=== PATIENT | male | born 2000 | race American Indian/Alaskan Native ===

== ENCOUNTER 2019-07-13 03:06 | Emergency (ER) | payer MEDICAID, OTHER ==
[2019-07-13] MEDS ORDERED: Haloperidol Lactate 5 MG/ML SDV IM ONE ×3 (03:19→03:54)
[2019-07-13] MEDS ORDERED: Sodium Chloride 0.9% 10 ML Syringe FLUSH PRN (04:24)
--- NOTE | 2019-07-13 04:24 | EDM.PDOC ---
ED HPI GENERAL MEDICAL PROBLEM - General Chief Complaint: Drug or Alcohol Abuse Stated Complaint: intoxicated Time Seen by Provider: 07/13/19 03:13 Source of Information: Reports: EMS, EMS Notes Reviewed, Police History Limitations: Reports: Intoxication - History of Present Illness INITIAL COMMENTS - FREE TEXT/NARRATIVE: Nahid arrives by EMS with LE following arrest for destruction of private property, and appearance of BRB on the hands and feet from this activity. Nahid appeared intoxicated, Breathylizer 0.17 and was uncooperative with LE necessitating transfer in 4-pt restraints. Upon arrival at [facility] ED, Nahid was uncooperative with staff necessitating chemical restraint with Haldol 10 mg IM, followed by Haldol 5 mg IM at 15 min, followed by Haldol 5 mg IM at 20 min with cooperation achieved. Cleansing revealed a 1 cm laceration of the hypothenar aspect of R hand, and this was closed with Dermabond uneventfully. Inspection did not reveal any other bleeding sites, or other injuries. ED ROS GENERAL - Review of Systems Review Of Systems: Unable To Obtain Reason Not Obtained: intoxication ED EXAM, GENERAL - Physical Exam Exam: See Below Exam Limited By: Intoxication General Appearance: No Apparent Distress, Other (dried blood on hands and feet, small amounts on face and clothing) Eye Exam: Bilateral Eye: EOMI, Normal Inspection, PERRL Ears: Normal External Exam Nose: Normal Inspection Throat/Mouth: Normal Inspection Head: Normocephalic Neck: Normal Inspection, Supple, Full Range of Motion Respiratory/Chest: Lungs Clear Cardiovascular: Regular Rate, Rhythm, No Murmur GI/Abdominal: Normal Bowel Sounds, Soft, Non-Tender, No Organomegaly, No Distention, No Mass, Other (surgical scar LLQ) (Male) Exam: No Hernia, Normal Inspection, Circumcised Rectal (Males) Exam: Deferred Back Exam: Normal Inspection Extremities: Other (1 cm laceration to hypothenar eminence R hand) Neurological: CN II-XII Intact, Inattentive Psychiatric: Flat Affect Skin Exam: Warm, Dry, Normal Color, No Rash, Wound/Incision (1 cm laceration ) Lymphatic: No Adenopathy ED GENERAL MEDICAL PROCEDURES - Laceration/Wound Repair Right Hand Lac/wound length in cm: 1.0 Appearance: Linear, Mildly Contaminated Distal NVT: Neuro & Vascular Intact, No Tendon Injury Skin Prep: Isopropyl Alcohol (Alcohol) Exploration/Debridement/Repair: Wound Explored, In a Bloodless Field, No Foreign Material Found Closed with: Dermabond Drain Placement: No Sterile Dressing Applied: None Tetanus Status Addressed: Yes Complications: No Course - Vital Signs Text/Narrative:: Following assessment, subsequent BA 0.20 was confirmed, Drug Screen positive for cannabis. IV D5LR 2L administered over the next 2 hrs, followed by D5LR maintenance fluids while asleep. VS remained stable during detoxification while observed in the ED. Screening metabolic studies were baseline. He was clinically stable at time of discharge, and left with mother. Last Recorded V/S: Last Vital Signs Temp Pulse 75 07/13/19 08:11 Resp 19 07/13/19 08:11 BP 99/48 L 07/13/19 08:11 Pulse Ox 100 07/13/19 08:11 - Orders/Labs/Meds Orders: Active Orders 24 hr Category Date Time Status Initiate/Renew Violent-Self Destructive Restraints >/= Care 07/13/19 03:06 Ordered 16yo Q4H Dextrose 5%-Lactated Ringers 1,000 ml Med 07/13/19 07:30 Active IV ASDIRECTED Dextrose 5%-Lactated Ringers 2,000 ml Med 07/13/19 04:30 Active IV ASDIRECTED Sodium Chloride 0.9% [Saline Flush] Med 07/13/19 04:24 Active 10 ml FLUSH ASDIRECTED PRN Peripheral IV Insertion Adult [OM.PC] Routine Oth 07/13/19 04:24 Ordered Medication Orders Dextrose/Lactated Ringer's (Dextrose 5%-Lactated Ringers) 2,000 mls @ 999 mls/ hr IV ASDIRECTED [facility] Last Admin: 07/13/19 06:06 Dose: 999 mls/hr Infusion: 07/13/19 06:06 Dose: 999 mls/hr Admin: 07/13/19 04:38 Dose: 999 mls/hr Dextrose/Lactated Ringer's (Dextrose 5%-Lactated Ringers) 1,000 mls @ 125 mls/ hr IV ASDIRECTED KALANI Last Admin: 07/13/19 07:21 Dose: 125 mls/hr Sodium Chloride (Saline Flush) 10 ml FLUSH ASDIRECTED PRN PRN Reason: Keep Vein Open Labs: Laboratory Tests 07/13/19 07/13/19 07/13/19 Range/Units 04:18 06:11 11:50 WBC 5.7 (4.5-12.0) X10-3/uL RBC 4.52 (4.30-5.75) x10(6)uL Hgb 13.2 L (13.5-17.8) g/dL Hct 40.5 (30.0-51.3) % MCV 89.6 (80-96) fL MCH 29.3 (27.7-33.6) pg MCHC 32.7 (32.2-35.4) g/dL RDW 12.7 (11.5-15.5) % Plt Count 235 (125-369) X10(3)uL MPV 8.6 (7.4-10.4) fL Neut % (Auto) 58.5 (46-82) % Lymph % (Auto) 29.4 (13-37) % [facility] % (Auto) 9.0 (4-12) % Eos % (Auto) 2 (1.0-5.0) % Baso % (Auto) 1 (0-2) % Neut # (Auto) 3.3 (1.6-8.3) # Lymph # (Auto) 1.7 (0.6-5.0) # [facility] # (Auto) 0.5 (0.0-1.3) # Eos # (Auto) 0.1 (0.0-0.8) # Baso # (Auto) 0.1 (0.0-0.2) # Sodium (135-145) mmol/L Potassium (3.5-5.3) mmol/L Chloride (100-110) mmol/L Carbon Dioxide (21-32) mmol/L BUN (7-18) mg/dL Creatinine (0.70-1.30) mg/dL Est Cr Clr Drug Dosing Estimated GFR (MDRD) (>60) BUN/Creatinine Ratio (9-20) Glucose (80-116) mg/dL Calcium (8.6-10.2) mg/dL Urine Opiates Screen Negative (NEGATIVE) Ur Oxycodone Screen Negative (NEGATIVE) Ur Propoxyphene Screen Negative (NEGATIVE) Ur Barbituates Screen Negative (NEGATIVE) Ur Tricyclics Screen Negative (NEGATIVE) Ur Phencyclidine Scrn Negative (NEGATIVE) Ur Amphetamine Screen Negative (NEGATIVE) Urine MDMA Screen Negative (NEGATIVE) U Benzodiazepines Scrn Negative (NEGATIVE) U Cocaine Metab Screen Negative (NEGATIVE) U Marijuana (THC) Screen Positive H (NEGATIVE) Ethyl Alcohol 0.20 H* (<0.03) % 07/13/19 07/13/19 Range/Units 11:50 11:50 WBC (4.5-12.0) X10-3/uL RBC (4.30-5.75) x10(6)uL Hgb (13.5-17.8) g/dL Hct (30.0-51.3) % MCV (80-96) fL MCH (27.7-33.6) pg MCHC (32.2-35.4) g/dL RDW (11.5-15.5) % Plt Count (125-369) X10(3)uL MPV (7.4-10.4) fL Neut % (Auto) (46-82) % Lymph % (Auto) (13-37) % [facility] % (Auto) (4-12) % Eos % (Auto) (1.0-5.0) % Baso % (Auto) (0-2) % Neut # (Auto) (1.6-8.3) # Lymph # (Auto) (0.6-5.0) # [facility] # (Auto) (0.0-1.3) # Eos # (Auto) (0.0-0.8) # Baso # (Auto) (0.0-0.2) # Sodium 145 (135-145) mmol/L Potassium 4.1 (3.5-5.3) mmol/L Chloride 112 H (100-110) mmol/L Carbon Dioxide 25 (21-32) mmol/L BUN 9 (7-18) mg/dL Creatinine 0.7 (0.70-1.30) mg/dL Est Cr Clr Drug Dosing TNP Estimated GFR (MDRD) > 60 (>60) BUN/Creatinine Ratio 12.9 (9-20) Glucose 85 (80-116) mg/dL Calcium 8.3 L (8.6-10.2) mg/dL Urine Opiates Screen (NEGATIVE) Ur Oxycodone Screen (NEGATIVE) Ur Propoxyphene Screen (NEGATIVE) Ur Barbituates Screen (NEGATIVE) Ur Tricyclics Screen (NEGATIVE) Ur Phencyclidine Scrn (NEGATIVE) Ur Amphetamine Screen (NEGATIVE) Urine MDMA Screen (NEGATIVE) U Benzodiazepines Scrn (NEGATIVE) U Cocaine Metab Screen (NEGATIVE) U Marijuana (THC) Screen (NEGATIVE) Ethyl Alcohol 0.08 H (<0.03) % Meds: Medications Generic Name Dose Route Start Last Admin Trade Name Freq PRN Reason Stop Dose Admin Dextrose/Lactated Ringer's 2,000 mls @ 999 mls/hr 07/13/19 04:30 07/13/19 06: 06 Dextrose 5%-Lactated Ringers IV 999 mls/hr ASDIRECTED KALANI Administration Dextrose/Lactated Ringer's 1,000 mls @ 125 mls/hr 07/13/19 07:30 07/13/19 07: 21 Dextrose 5%-Lactated Ringers IV 125 mls/hr ASDIRECTED KALANI Administration Sodium Chloride 10 ml 07/13/19 04:24 Saline Flush FLUSH ASDIRECTED PRN Keep Vein Open Discontinued Medications Generic Name Dose Route Start Last Admin Trade Name Freq PRN Reason Stop Dose Admin Haloperidol Lactate 10 mg 07/13/19 03:19 07/13/19 03:22 Haldol IM 07/13/19 03:20 10 mg ONETIME ONE Administration Haloperidol Lactate 5 mg 07/13/19 03:32 07/13/19 03:34 Haldol IM 07/13/19 03:33 5 mg ONETIME ONE Administration Haloperidol Lactate 5 mg 07/13/19 03:54 07/13/19 03:57 Haldol IM 07/13/19 03:55 5 mg ONETIME ONE Administration Thiamine HCl 100 mg/ Sodium 101 mls @ 202 mls/hr 07/13/19 04:25 07/13/19 04: 39 Chloride IV 07/13/19 04:26 202 mls/hr ONETIME ONE Administration Departure - Departure Time of Disposition: 12:10 Disposition: Home, Self-Care 01 Condition: Fair Clinical Impression: Alcohol abuse Laceration of right hand Qualifiers: Encounter type: initial encounter Foreign body presence: without foreign body Qualified Code(s): S61.411A - Laceration without foreign body of right hand, initial encounter - Discharge Information *PRESCRIPTION DRUG MONITORING PROGRAM REVIEWED*: Not Applicable *COPY OF PRESCRIPTION DRUG MONITORING REPORT IN PATIENT RAMU: Not Applicable Instructions: Binge-Drinking Information, Adult Referrals: PCP,None [Primary Care Provider] - Forms: ED Department Discharge Sepsis Event Note - Focused Exam Vital Signs: Vital Signs Pulse Resp BP Pulse Ox 07/13/19 08:11 75 19 99/48 L 100 07/13/19 04:15 63 14 102/59 L 95 Date Exam was Performed: 07/13/19 Time Exam was Performed: 12:33 - Problem List & Annotations (1) Alcohol abuse SNOMED Code(s): 59992671 Code(s): F10.10 - ALCOHOL ABUSE, UNCOMPLICATED Status: Acute Current Visit: Yes Annotation/Comment:: Nahid would benefit from CD intervention. (2) Laceration of right hand SNOMED Code(s): 974393702, 79573992264666221 Code(s): S61.411A - LACERATION WITHOUT FOREIGN BODY OF RIGHT HAND, INIT ENCNTR Status: Acute Current Visit: Yes Annotation/Comment:: Routine wound cares. Qualifiers: Encounter type: initial encounter Foreign body presence: without foreign body Qualified Code(s): S61.411A - Laceration without foreign body of right hand, initial encounter - Problem List Review Problem List Initiated/Reviewed/Updated: Yes - My Orders Last 24 Hours: My Active Orders 07/13/19 03:06 Initiate/Renew Violent-Self Destructive Restraints >/=18yo Q4H 07/13/19 04:24 Sodium Chloride 0.9% [Saline Flush] 10 ml FLUSH ASDIRECTED PRN Peripheral IV Insertion Adult [OM.PC] Routine 07/13/19 04:30 Dextrose 5%-Lactated Ringers 2,000 ml IV ASDIRECTED 07/13/19 07:30 Dextrose 5%-Lactated Ringers 1,000 ml IV ASDIRECTED - Assessment/Plan Last 24 Hours: My Active Orders 07/13/19 03:06 Initiate/Renew Violent-Self Destructive Restraints >/=18yo Q4H 07/13/19 04:24 Sodium Chloride 0.9% [Saline Flush] 10 ml FLUSH ASDIRECTED PRN Peripheral IV Insertion Adult [OM.PC] Routine 07/13/19 04:30 Dextrose 5%-Lactated Ringers 2,000 ml IV ASDIRECTED 07/13/19 07:30 Dextrose 5%-Lactated Ringers 1,000 ml IV ASDIRECTED Plan: Follow up with [facility].
[2019-07-13] MEDS ORDERED: Thiamine 100 MG in Sodium Chloride 0.9% 100 ML IV ONE (04:25)
[2019-07-13] MEDS ORDERED: Dextrose 5%-Lactated Ringers 1,000 ML IV SCH (07:30)
== END 2019-07-13 12:20 | disposition home or self-care (01) ==
LOC: FB.ED 03:06
DX: S61.411A Laceration without foreign body of right hand, initial encounter (principal); F10.129 Alcohol abuse with intoxication, unspecified; Y90.1 Blood alcohol level of 20-39 mg/100 ml; W22.8XXA Striking against or struck by other objects, initial encounter; Y92.149 Unspecified place in prison as the place of occurrence of the external cause
CPT/HCPCS: 12001; 36415; 80048; 80305; 80307; 85025; 96365; 96372; 99284; J1630; J3411; J7050; J7121

== ENCOUNTER 2019-07-14 12:32 | Emergency (ER) | payer SELFPAY ==
[2019-07-14] MEDS ORDERED: Benztropine 1 MG Tab PO ONE (12:37)
[2019-07-14] MEDS ORDERED: diphenhydrAMINE 50 MG/ML SDV IVPUSH ONE (12:37)
[2019-07-14] MEDS ORDERED: Cyclobenzaprine 10 MG Tab PO ONE (12:37)
--- NOTE | 2019-07-14 13:36 | EDM.PDOC ---
ED HPI GENERAL MEDICAL PROBLEM - General Stated Complaint: CODE 100 Time Seen by Provider: 07/14/19 12:35 Source of Information: Reports: Patient History Limitations: Reports: No Limitations - History of Present Illness INITIAL COMMENTS - FREE TEXT/NARRATIVE: Patient presented to the ED because of severe muscle spasm of the neck. He couldn't turn his neck to th left. He was seen in the ED yesterday and was given haldol 20 mg IM . There is no headache/fever/chills or altered LOC. neck Pain Score (Numeric/FACES): 10 - Related Data Allergies Allergy/AdvReac Type Severity Reaction Status Date / Time codeine Allergy Hives Verified 07/14/19 13:02 haloperidol [From Haldol] Allergy Other Verified 07/14/19 13:33 Home Meds: Home Meds NK [No Known Home Meds] 07/14/19 [History] Past Medical History - Past Surgical History GI Surgical History: Reports: Other (See Below) Other GI Surgeries/Procedures: Patient unable to tell us what kind of surgery he had, states he had a surgery on his stomach when he was young. Scar to left lower abdomen. Social & Family History - Family History Family Medical History: Noncontributory ED ROS GENERAL - Review of Systems Review Of Systems: See Below Constitutional: Reports: No Symptoms HEENT: Reports: No Symptoms Respiratory: Reports: No Symptoms Cardiovascular: Reports: No Symptoms Endocrine: Reports: No Symptoms GI/Abdominal: Reports: No Symptoms : Reports: No Symptoms Musculoskeletal: Reports: Neck Pain Skin: Reports: No Symptoms ED EXAM, GENERAL - Physical Exam Exam: See Below Exam Limited By: No Limitations General Appearance: Alert, No Apparent Distress Ears: Normal External Exam Nose: Normal Inspection, Normal Mucosa Throat/Mouth: Normal Inspection, Normal Lips Head: Atraumatic, Other Neck: Other (spasm) Cardiovascular: Normal Peripheral Pulses, Regular Rate, Rhythm, No Edema GI/Abdominal: Normal Bowel Sounds, Soft, Non-Tender Back Exam: Normal Inspection, Full Range of Motion Extremities: Normal Inspection, Normal Range of Motion, Non-Tender Course - Vital Signs Text/Narrative:: labs-normal benztropine 1 mg po x1 benadryl 50 mg IV x1 flexeril 10 mg po x1 Last Recorded V/S: Last Vital Signs Temp 36.7 C 07/14/19 13:45 Pulse 66 07/14/19 13:45 Resp 20 07/14/19 13:45 BP 122/61 07/14/19 13:45 Pulse Ox 100 07/14/19 13:45 - Orders/Labs/Meds Orders: Active Orders 24 hr Category Date Time Status LYME, TOTAL AB TEST/REFLEX Stat Lab 07/14/19 12:30 Received Labs: Laboratory Tests 07/14/19 07/14/19 Range/Units 12:30 12:30 WBC 9.9 (4.5-12.0) X10-3/uL RBC 5.33 (4.30-5.75) x10(6)uL Hgb 15.5 (13.5-17.8) g/dL Hct 47.6 (30.0-51.3) % MCV 89.4 (80-96) fL MCH 29.1 (27.7-33.6) pg MCHC 32.5 (32.2-35.4) g/dL RDW 12.4 (11.5-15.5) % Plt Count 286 (125-369) X10(3)uL MPV 8.6 (7.4-10.4) fL Neut % (Auto) 67.4 (46-82) % Lymph % (Auto) 26.3 (13-37) % [place] % (Auto) 5.0 (4-12) % Eos % (Auto) 0 L (1.0-5.0) % Baso % (Auto) 1 (0-2) % Neut # (Auto) 6.7 (1.6-8.3) # Lymph # (Auto) 2.6 (0.6-5.0) # [place] # (Auto) 0.5 (0.0-1.3) # Eos # (Auto) 0.0 (0.0-0.8) # Baso # (Auto) 0.1 (0.0-0.2) # Sodium 140 (135-145) mmol/L Potassium 3.8 (3.5-5.3) mmol/L Chloride 105 D (100-110) mmol/L Carbon Dioxide 21 (21-32) mmol/L BUN 10 (7-18) mg/dL Creatinine 0.8 (0.70-1.30) mg/dL Est Cr Clr Drug Dosing TNP Estimated GFR (MDRD) > 60 (>60) BUN/Creatinine Ratio 12.5 (9-20) Glucose 88 (80-116) mg/dL Calcium 9.5 (8.6-10.2) mg/dL Total Bilirubin 1.4 H (0.1-1.3) mg/dL AST 49 H (5-25) IU/L ALT 32 (12-36) U/L Alkaline Phosphatase 81 (56-112) IU/L Total Protein 7.5 (6.0-8.0) g/dL Albumin 4.5 (3.5-5.2) g/dL Globulin 3.0 g/dL Albumin/Globulin Ratio 1.5 Meds: Medications Discontinued Medications Generic Name Dose Route Start Last Admin Trade Name Freq PRN Reason Stop Dose Admin Benztropine Mesylate 1 mg 07/14/19 12:37 07/14/19 12:49 Cogentin PO 07/14/19 12:38 1 mg ONETIME ONE Administration Cyclobenzaprine HCl 10 mg 07/14/19 12:37 07/14/19 12:49 Flexeril PO 07/14/19 12:38 10 mg ONETIME ONE Administration Diphenhydramine HCl 50 mg 07/14/19 12:37 07/14/19 12:50 Benadryl IVPUSH 07/14/19 12:38 50 mg ONETIME ONE Administration Departure - Departure Time of Disposition: 13:35 Disposition: Home, Self-Care 01 Condition: Good Clinical Impression: Dystonia - Discharge Information Instructions: Dystonia Referrals: PCP,None [Primary Care Provider] - Forms: ED Department Discharge Additional Instructions: please read discharge instructions on dystonia take benadryl 50 mg every 6 hours as needed for muscle spasm on your neck follow up as needed Sepsis Event Note - Focused Exam Date Exam was Performed: 07/15/19 Time Exam was Performed: 05:45 - My Orders Last 24 Hours: My Active Orders 07/14/19 12:30 LYME, TOTAL AB TEST/REFLEX Stat - Assessment/Plan Last 24 Hours: My Active Orders 07/14/19 12:30 LYME, TOTAL AB TEST/REFLEX Stat
[2019-07-18 12:13] LABS: LYME IGG/IGM AB <0.91 ISR (0.00-0.90)
== END 2019-07-14 13:50 | disposition home or self-care (01) ==
LOC: FB.ED 12:32
DX: G24.9 Dystonia, unspecified (principal); Z88.5 Allergy status to narcotic agent; Z88.8 Allergy status to other drugs, medicaments and biological substances
CPT/HCPCS: 80053; 85025; 96374; 99284; A9270; J1200; 36415; 86618

== ENCOUNTER 2022-07-19 04:16 | Emergency (ER) | payer SELFPAY ==
[2022-07-19] MEDS ORDERED: Naloxone 0.4 MG/ML SDV IM STA (04:46)
== END 2022-07-19 05:10 ==
LOC: FB.ED 04:16
DX: F19.10 Other psychoactive substance abuse, uncomplicated (principal); Z88.5 Allergy status to narcotic agent; Z88.8 Allergy status to other drugs, medicaments and biological substances; Z86.16 Personal history of COVID-19; Z72.0 Tobacco use
CPT/HCPCS: 96372; 99283; J2310

== ENCOUNTER 2022-08-20 22:34 | Emergency (ER) | payer OTHER ==
[2022-08-20] MEDS: Diphtheria,Pertussis(Acell),Tetanus Vaccine 0.5 ML Syringe IM ONE ×2 (22:47→22:52)
== END 2022-08-20 23:03 ==
LOC: FB.ED 22:34
DX: S50.812A Abrasion of left forearm, initial encounter (principal); S60.812A Abrasion of left wrist, initial encounter; Z88.5 Allergy status to narcotic agent; Z88.8 Allergy status to other drugs, medicaments and biological substances; Z86.16 Personal history of COVID-19; Y04.0XXA Assault by unarmed brawl or fight, initial encounter
CPT/HCPCS: 90715; 99283